=== PATIENT | female | born 1995 | race Two or more races ===

== ENCOUNTER 2016-08-08 06:38 | Inpatient (IN) | payer SELFPAY ==
[2016-08-08] MEDS ORDERED: PITOCIN ONE ×2 (06:56→15:55)
[2016-08-08] MEDS ORDERED: D5LR 1000ML W PITOCIN 10 U/L 1,000 ML IV ONE (06:56)
[2016-08-08] MEDS ORDERED: D5 1/2 NS 1000ML W PITOCIN 20 U/L 1,000 ML IV ONE (06:57)
[2016-08-08] MEDS ORDERED: D5 1/2 NS 1000 ML 1,000 ML IV ONE (07:13)
[2016-08-08] MEDS ORDERED: PITOCIN IVP ONE (07:35)
[2016-08-08] MEDS ORDERED: DILAUDID INJ IVP PRN (07:35)
[2016-08-08] MEDS ORDERED: PITOCIN 10 UNITS in D5 LR 1000 ML 1,000 ML IV PRN (07:35)
[2016-08-08] MEDS ORDERED: PHENERGAN INJ 25 MG IV PRN ×2 (07:35→16:12)
[2016-08-08] MEDS ORDERED: REGLAN INJ 10 MG VIAL IVP PRN (07:35)
[2016-08-08] MEDS ORDERED: D5 1/2 NS 1000 ML 1,000 ML IV SCH (08:00)
[2016-08-08 08:20] LABS: BASOPHILS % (AUTO) 0.3 % (0.2-1.0); EOSINOPHILS # (AUTO) 0.1 x10^3/uL (0.0-0.2); EOSINOPHILS % (AUTO) 1.7 % (0.9-2.9); HEMATOCRIT 30.3 % (36.0-47.0); HEMOGLOBIN 10.1 g/dL (12.0-16.0); LYMPHOCYTES # (AUTO) 2.2 X10^3/uL (1.3-2.9); LYMPHOCYTES % (AUTO) 27.7 % (21.0-51.0); MEAN CORPUSCULAR HEMOGLOBIN 26.1 pg (27.0-34.0); MEAN CORPUSCULAR HGB CONC 33.2 g/dL (33.0-35.0); MEAN CORPUSCULAR VOLUME 78.6 fL (80.0-100.0); MONOCYTES # (AUTO) 0.6 x10^3/uL (0.3-0.8); NEUTROPHILS % (AUTO) 63.3 % (42.0-75.0); PLATELET COUNT 208 X10^3/uL (150.0-450.0); RED BLOOD COUNT 3.86 X10^6/uL (3.5-5.4); RED CELL DISTRIBUTION WIDTH 14.7 % (11.6-16.5); WHITE BLOOD COUNT 7.9 X10^3/uL (3.6-10.0)
[2016-08-08 08:21] LABS: BLOOD UREA NITROGEN 7 mg/dL (7-18); CALCIUM 8.5 mg/dL (8.5-10.1); CARBON DIOXIDE 25.1 mmol/L (21-32); CHLORIDE 106 mmol/L (98-107); CREATININE 0.56 mg/dL (0.55-1.02); GLUCOSE 86 mg/dL (65-99); SODIUM 140 mmol/L (136-145); eGFR BLACK RACES > 60 (>60); eGFR NON BLACK RACES > 60 (>60)
[2016-08-08 08:30] LABS: BILIRUBIN,URINE NEGATIVE (NEGATIVE); BLOOD/HEMOGLOBIN,URINE 1+ (NEGATIVE); GLUCOSE, URINE NEGATIVE (NEGATIVE); KETONES,URINE NEGATIVE (NEGATIVE); LEUKOCYTE ESTERASE ,URINE 3+ (NEGATIVE); NITRITES,URINE NEGATIVE (NEGATIVE); PH,URINE 6.5 (5.0 - 8.0); PROTEIN,URINE 1+ (NEGATIVE); UROBILINOGEN,URINE NORMAL (NORMAL)
[2016-08-08 08:35] LABS: APPEARANCE,URINE CLOUDY (CLEAR); BACTERIA,URINE 2+ /HPF (NEGATIVE); COLOR,URINE YELLOW (YELLOW); RBC,URINE 0-5 /HPF (NEGATIVE); SQUAMOUS EPITHELIAL CELL,UR NUMEROUS /HPF (NEGATIVE)
[2016-08-08] MEDS ORDERED: NUBAIN INJ 10 ONE ×2 (12:49→14:53)
[2016-08-08] MEDS: NUBAIN INJ 200 MG VIAL MULTIDOSE IVP PRN ×2 (12:50→14:53)
[2016-08-08] MEDS ORDERED: XYLOCAINE 1 % (PLAIN) ONE (16:00)
[2016-08-08] MEDS ORDERED: MOTRIN TAB 800 MG PO PRN ×2 (16:12→16:53)
[2016-08-08] MEDS ORDERED: MILK OF MAGNESIA PO PRN (16:53)
[2016-08-08] MEDS ORDERED: AMBIEN PO PRN (16:53)
[2016-08-08] MEDS: ZANTAC PO SCH (21:25)
[2016-08-09] MEDS: D5 1/2 NS 1000 ML 1,000 ML with PITOCIN 20 UNITS IV SCH ×8 (00:50→18:01)
[2016-08-09 06:08] LABS: HEMATOCRIT 27.1 % (36.0-47.0)
[2016-08-09] MEDS: PRENATAL PLUS PO SCH (08:59)
[2016-08-09] MEDS: ZANTAC PO SCH ×2 (08:59→20:36)
[2016-08-09] MEDS ORDERED: NS 100 ML IV 100 ML with VENOFER 400 MG IV NR ×2 (11:00)
[2016-08-10] MEDS: PRENATAL PLUS PO SCH (08:55)
[2016-08-10] MEDS: ZANTAC PO SCH (08:55)
[2016-08-10 12:01] VITALS: BP 101/55
== END 2016-08-10 13:30 | disposition home or self-care (01) | DRG 775 ==
LOC: LD 06:38 → MED/SURG 17:00
PROVIDERS: ADMIT Obstetrics & Gynecology Obstetrics; ATTEND Obstetrics & Gynecology Obstetrics
PROC: 10E0XZZ Delivery of Products of Conception, External Approach (ICD-10-PCS; principal; 2016-08-08)
PROC: 10907ZC Drainage of Amniotic Fluid, Therapeutic from Products of Conception, Via Natural or Artificial Opening (ICD-10-PCS; 2016-08-08)
PROC: 3E033VJ Introduction of Other Hormone into Peripheral Vein, Percutaneous Approach (ICD-10-PCS; 2016-08-08)
PROC: 0UQMXZZ Repair Vulva, External Approach (ICD-10-PCS; 2016-08-08)
DX: O70.0 First degree perineal laceration during delivery (principal); Z37.0 Single live birth; O71.82 Other specified trauma to perineum and vulva; Z3A.39 39 weeks gestation of pregnancy
CPT/HCPCS: 36415; 59409; 80048; 81001; 85014; 85018; 85025; 86592; 86850; 86900; 86901; 87086; 87088; 87186; A4216; A4222; S0197; J2001; J2300; J2590; J7042

== ENCOUNTER 2017-11-04 23:02 | Inpatient (IN) ==
[2017-11-04 23:14] VITALS: BMI 29.2
[2017-11-04 23:47] LABS: BILIRUBIN,URINE NEGATIVE (NEGATIVE); BLOOD/HEMOGLOBIN,URINE 4+ (NEGATIVE); GLUCOSE, URINE NEGATIVE (NEGATIVE); KETONES,URINE NEGATIVE (NEGATIVE); LEUKOCYTE ESTERASE ,URINE 1+ (NEGATIVE); NITRITES,URINE NEGATIVE (NEGATIVE); PROTEIN,URINE 3+ (NEGATIVE); UROBILINOGEN,URINE NORMAL (NORMAL)
[2017-11-04 23:55] LABS: APPEARANCE,URINE TURBID (CLEAR); COLOR,URINE PALE YELLOW (YELLOW)
[2017-11-04 23:57] LABS: BACTERIA,URINE TRACE /HPF (NEGATIVE); RBC,URINE 30-50 /HPF (NONE SEEN); SQUAMOUS EPITHELIAL CELL,UR MANY /HPF (NEGATIVE)
[2017-11-04 23:58] LABS: AMNISURE ROM TEST THERE IS A RUPTURE (NO RUPTURE); AMORPHOUS SEDIMENT,UR 2+ /HPF (NEGATIVE)
[2017-11-05] MEDS ORDERED: LR 1000 ML IV 1,000 ML IV ONE (00:01)
[2017-11-05] MEDS ORDERED: PITOCIN ONE (00:01)
[2017-11-05] MEDS ORDERED: NUBAIN INJ 200 MG VIAL MULTIDOSE IVP PRN (00:08)
[2017-11-05] MEDS ORDERED: PITOCIN IVP ONE (00:08)
[2017-11-05] MEDS ORDERED: D5LR 1L W PITOCIN 10 UNITS/L 10 UNITS/1,000 ML BAG IV PRN (00:08)
[2017-11-05] MEDS ORDERED: NS 100 ML IV 100 ML IV ONE (00:11)
[2017-11-05] MEDS ORDERED: D5 1/2 NS 1L W PITOCIN 20 UNITS/L 20 UNITS/1,000 ML BAG IV ONE (00:11)
[2017-11-05] MEDS ORDERED: AMPICILLIN VIAL 2 GRAM ONE (00:11)
[2017-11-05] MEDS ORDERED: XYLOCAINE 1 % (PLAIN) ONE (00:35)
[2017-11-05] MEDS ORDERED: PHENERGAN INJ 25 MG IV PRN (00:59)
[2017-11-05] MEDS ORDERED: MOTRIN TAB 800 MG PO PRN ×2 (00:59→01:54)
[2017-11-05] MEDS ORDERED: D5 1/2 NS 1000 ML 1,000 ML with PITOCIN 20 UNITS IV SCH ×2 (01:00)
[2017-11-05] MEDS ORDERED: AMPICILLIN VIAL 2 GRAM 2 G in NS 100 ML IV + SPIKE MINIBAG* 100 ML IV SCH (01:00)
[2017-11-05 01:40] LABS: BASOPHILS % (AUTO) 0.1 % (0.2-1.0); EOSINOPHILS # (AUTO) 0.2 x10^3/uL (0.0-0.2); EOSINOPHILS % (AUTO) 1.4 % (0.9-2.9); HEMATOCRIT 31.5 % (36.0-47.0); HEMOGLOBIN 10.5 g/dL (12.0-16.0); LYMPHOCYTES # (AUTO) 1.6 X10^3/uL (1.3-2.9); LYMPHOCYTES % (AUTO) 15.1 % (21.0-51.0); MEAN CORPUSCULAR HEMOGLOBIN 25.4 pg (27.0-34.0); MEAN CORPUSCULAR HGB CONC 33.3 g/dL (33.0-35.0); MEAN PLATELET VOLUME 10.9 fL (7.4-11.0); MONOCYTES # (AUTO) 0.5 x10^3/uL (0.3-0.8); NEUTROPHILS # (AUTO) 8.2 x10^3/uL (2.2-4.8); NEUTROPHILS % (AUTO) 78.4 % (42.0-75.0); PLATELET COUNT 185 X10^3/uL (150.0-450.0); RED BLOOD COUNT 4.15 X10^6/uL (3.5-5.4); RED CELL DISTRIBUTION WIDTH 15.4 % (11.6-16.5); WHITE BLOOD COUNT 10.5 X10^3/uL (3.6-10.0)
[2017-11-05 01:43] LABS: BLOOD UREA NITROGEN 10 mg/dL (7-18); CALCIUM 8.4 mg/dL (8.5-10.1); CARBON DIOXIDE 24.3 mmol/L (21-32); CHLORIDE 101 mmol/L (98-107); COR NA(FOR HYPERGLY) 135 mmol/L (136-145); CREATININE 0.68 mg/dL (0.55-1.02); SODIUM 135 mmol/L (136-145); eGFR NON BLACK RACES > 60 (>60)
[2017-11-05] MEDS ORDERED: ADACEL or BOOSTRIX TDaP VACCINE IM ONE (01:54)
[2017-11-05] MEDS ORDERED: DERMOPLAST SPRAY TOP PRN (01:54)
[2017-11-05 02:10] LABS: PLATELET MORPHOLOGY COMMENT NORMAL (NORMAL)
[2017-11-05] MEDS ORDERED: D5W IV SCH ×2 (03:00)
[2017-11-05] MEDS ORDERED: PITOCIN IV SCH ×2 (03:00)
[2017-11-05] MEDS ORDERED: AMPICILLIN VIAL 1 GRAM 1 G in NS 50 ML IV + SPIKE MINIBAG* 50 ML IV SCH (04:09)
[2017-11-05 05:07] LABS: HEMATOCRIT 28.1 % (36.0-47.0); HEMOGLOBIN 9.3 g/dL (12.0-16.0)
[2017-11-05] MEDS: D5 1/2 NS 1000 ML 1,000 ML with PITOCIN 20 UNITS IV SCH ×4 (05:20→23:39)
[2017-11-05] MEDS ORDERED: NS 100 ML IV 100 ML with VENOFER 200 MG IV NR ×2 (09:00)
[2017-11-06] MEDS: D5 1/2 NS 1000 ML 1,000 ML with PITOCIN 20 UNITS IV SCH ×4 (06:12→11:10)
[2017-11-06] MEDS ORDERED: ADACEL or BOOSTRIX TDaP VACCINE IM ONE (09:00)
[2017-11-06 12:16] VITALS: BP 103/50
== END 2017-11-06 14:15 | disposition home or self-care (01) | DRG 775 ==
LOC: ER 23:08 → LD 11-05 00:03 → MED/SURG 11-05 01:36
PROVIDERS: ADMIT Obstetrics & Gynecology Obstetrics; ATTEND Obstetrics & Gynecology Obstetrics
DX: O71.82 Other specified trauma to perineum and vulva; Z37.0 Single live birth; Z3A.38 38 weeks gestation of pregnancy; Z23 Encounter for immunization
CPT/HCPCS: 36415; 59409; 80048; 81001; 84112; 85014; 85018; 85025; 86701; 86703; 86850; 86900; 86901; 87389; 90715; 96365; 99284; A4216; A4222; J0290; J1756; J2590; J7050; J7060; J7120; S5010